=== PATIENT | male | born 1980 | race Caucasian/White ===

== ENCOUNTER 2021-08-03 18:21 | Inpatient (IN) | payer OTHER ==
[~2021-08-03] VITALS: Ht 177.8 cm; Wt 124.9 kg
[2021-08-03] MEDS ORDERED: ACETAMINOPHEN 500 MG TAB PO ONE (18:45)
[2021-08-03 19:11] LABS: Basophils # (auto) 0.1 10 ^3/uL (0-0.2); Basophils % (auto) 1.1 % (0.0-2.0); Eosinophils # (auto) 0.1 10 ^3/uL (0-0.8); Eosinophils % (auto) 1.1 % (0.0-7.0); Hematocrit 49.8 % (41.0-53.0); Hemoglobin 17.2 g/dL (13.5-17.5); Lymphocytes # (auto) 1.4 10 ^3/uL (0.4-5.4); Lymphocytes % (auto) 16.3 % (10.0-50.0); Mean Corpuscular Hemoglobin 32.1 pg (28.0-32.0); Mean Corpuscular Hgb Conc. 34.6 g/dL (32.0-36.0); Mean Corpuscular Volume 92.7 fL (80.0-100.0); Monocytes # (auto) 1.3 10 ^3/uL (0-1.3); Monocytes % (auto) 15.3 % (0.0-12.0); Neutrophils # (auto) 5.5 10 ^3/uL (1.6-8.6); Neutrophils % (auto) 66.2 % (37.0-80.0); Nucleated Red Blood Cells % 0.1 %; Red Blood Cells 5.37 10^6/uL (4.5-5.90); Red Cell Distribution Width 13.4 % (11.8-14.3); White Blood Cell 8.3 10^3/uL (4.4-10.8)
[2021-08-03] MEDS ORDERED: ALBUTEROL SULF HFA 90MCG INH 200DOSE IN ONE (19:15)
[2021-08-03] MEDS ORDERED: DexAMETHasone SOD PHOS 10MG/1ML VIAL INJ IV ONE (19:15)
[2021-08-03 19:28] LABS: Chloride 105 mmol/L (98-107); Potassium 3.7 mmol/L (3.5-5.1); Sodium 138 mmol/L (136-145)
[2021-08-03 19:32] LABS: Albumin 3.7 g/dL (3.4-5.0); Anion Gap 8 (5-15); BUN/Creatinine Ratio 10.5; Blood Urea Nitrogen 10 mg/dL (7-18); Calcium 8.8 mg/dL (8.5-10.1); Carbon Dioxide 25 mmol/L (21-32); GFR African American 112 mL/min; GFR Non-African American 93 mL/min; Glucose 105 mg/dL (74-106)
[2021-08-03 19:48] LABS: Alanine Aminotransferase 51 U/L (16-61); Alkaline Phosphatase 63 U/L (45-117); Aspartate Aminotransferase 22 U/L (15-37); Bilirubin, Total 0.6 mg/dL (0.2-1.0); Total Protein 7.5 g/dL (6.4-8.2)
[2021-08-04] MEDS ORDERED: ACETAMINOPHEN 500 MG TAB PO PRN (03:45)
[2021-08-04] MEDS ORDERED: MORPHINE SULFATE INJECTION 2 MG/ML SYRG IV PRN (03:45)
[2021-08-04] MEDS ORDERED: NITROGLYCERIN 0.4 MG SL TAB SL PRN (03:45)
[2021-08-04] MEDS ORDERED: TEMAZEPAM 15 MG CAP PO PRN (03:45)
[2021-08-04] MEDS ORDERED: ONDANSETRON HCL 4 MG/2 ML VIAL IV PRN (03:45)
[2021-08-04 09:10] VITALS: BP 120/72
[2021-08-04] MEDS: DexAMETHasone SOD PHOS 10MG/1ML VIAL INJ IV SCH (09:39)
[2021-08-04] MEDS: ZINC SULFATE 220mg CAP or TAB PO SCH (09:39)
[2021-08-04] MEDS: AZITHROMYCIN 500MG/ 250ML 250 ML IV SCH (09:39)
[2021-08-04] MEDS: ASCORBIC ACID 1,000 MG TAB PO SCH (09:39)
[2021-08-04] MEDS: CHOLECALCIFEROL (VITD3) 2,000 UNIT CAP/TAB PO SCH (09:40)
[2021-08-04] MEDS: ENOXAPARIN SOD 40 MG/0.4 ML SYRINGE SC SCH ×2 (09:40→22:18)
[2021-08-04] MEDS ORDERED: REMDESIVIR PER PHARMACY 0 ML IV SCH (11:45)
[2021-08-04] MEDS ORDERED: REMDESIVIR 200 MG in NS 210ml LOADING DOSE ADULT IV ONE (15:00)
[2021-08-04] MEDS ORDERED: guaiFENesin-DM 100/10mg/5ml SYR PO PRN (15:30)
[2021-08-04] MEDS ORDERED: PNEUMOCOCCAL VACC POLYS 25 MCG/0.5 ML VIAL IM ONE (21:30)
[2021-08-04 22:00] VITALS: BP 133/67
[2021-08-04] MEDS: FAMOTIDINE 20 MG TAB PO SCH (22:18)
[2021-08-04] MEDS: ALBUTEROL SULF HFA 90MCG INH 200DOSE IN PRN (23:11)
[2021-08-05 05:00] VITALS: BP 140/75
[2021-08-05 06:06] LABS: Basophils # (auto) 0 10 ^3/uL (0-0.2); Basophils % (auto) 0.1 % (0.0-2.0); Eosinophils # (auto) 0 10 ^3/uL (0-0.8); Hematocrit 49.8 % (41.0-53.0); Hemoglobin 16.4 g/dL (13.5-17.5); Lymphocytes # (auto) 1.7 10 ^3/uL (0.4-5.4); Lymphocytes % (auto) 8.8 % (10.0-50.0); Mean Corpuscular Hemoglobin 31.4 pg (28.0-32.0); Mean Corpuscular Hgb Conc. 32.9 g/dL (32.0-36.0); Mean Corpuscular Volume 95.2 fL (80.0-100.0); Monocytes # (auto) 2.1 10 ^3/uL (0-1.3); Monocytes % (auto) 11.1 % (0.0-12.0); Neutrophils # (auto) 15.1 10 ^3/uL (1.6-8.6); Nucleated Red Blood Cells % 0.1 %; Red Blood Cells 5.23 10^6/uL (4.5-5.90); Red Cell Distribution Width 13.6 % (11.8-14.3); White Blood Cell 18.9 10^3/uL (4.4-10.8)
[2021-08-05 06:30] LABS: Potassium 4.2 mmol/L (3.5-5.1)
[2021-08-05 06:41] LABS: Albumin 3.4 g/dL (3.4-5.0); BUN/Creatinine Ratio 19.8; Bilirubin, Total 0.3 mg/dL (0.2-1.0); Calcium 8.4 mg/dL (8.5-10.1); Total Protein 6.8 g/dL (6.4-8.2)
[2021-08-05] MEDS: ALBUTEROL SULF HFA 90MCG INH 200DOSE IN PRN (07:33)
[2021-08-05 09:00] VITALS: BP 109/71
[2021-08-05] MEDS: ZINC SULFATE 220mg CAP or TAB PO SCH (09:27)
[2021-08-05] MEDS: DexAMETHasone SOD PHOS 10MG/1ML VIAL INJ IV SCH (09:27)
[2021-08-05] MEDS: CHOLECALCIFEROL (VITD3) 2,000 UNIT CAP/TAB PO SCH (09:27)
[2021-08-05] MEDS: ASCORBIC ACID 1,000 MG TAB PO SCH (09:27)
[2021-08-05] MEDS: FAMOTIDINE 20 MG TAB PO SCH ×2 (09:27→22:16)
[2021-08-05] MEDS: AZITHROMYCIN 500MG/ 250ML 250 ML IV SCH (09:27)
[2021-08-05] MEDS: ENOXAPARIN SOD 40 MG/0.4 ML SYRINGE SC SCH ×2 (09:28→22:17)
[2021-08-05] MEDS ORDERED: POM PO (09:51)
[2021-08-05] MEDS ORDERED: IVERMECTIN 3 MG TAB PO SCH (10:00)
[2021-08-05 13:00] VITALS: BP 110/73
[2021-08-05] MEDS: REMDESIVIR 100mg 100 MG in SODIUM CHL 0.9% 230 ML IV SCH (14:51)
[2021-08-05 22:23] VITALS: BP 159/88
[2021-08-06 05:02] VITALS: BP 135/80
[2021-08-06] MEDS: ALBUTEROL SULF HFA 90MCG INH 200DOSE IN PRN (06:53)
[2021-08-06] MEDS: ZINC SULFATE 220mg CAP or TAB PO SCH (08:40)
[2021-08-06] MEDS: FAMOTIDINE 20 MG TAB PO SCH (08:40)
[2021-08-06] MEDS: CHOLECALCIFEROL (VITD3) 2,000 UNIT CAP/TAB PO SCH (08:40)
[2021-08-06] MEDS: ASCORBIC ACID 1,000 MG TAB PO SCH (08:40)
[2021-08-06] MEDS: ENOXAPARIN SOD 40 MG/0.4 ML SYRINGE SC SCH (08:41)
[2021-08-06 09:00] VITALS: BP 123/78
[2021-08-06] MEDS ORDERED: AZITHROMYCIN 250 MG TAB PO SCH (10:00)
[2021-08-06] MEDS ORDERED: DexAMETHasone 4 MG TAB PO SCH (10:00)
[2021-08-06] MEDS: REMDESIVIR 100mg 100 MG in SODIUM CHL 0.9% 230 ML IV SCH (10:39)
[2021-08-06] MEDS ORDERED: CHOL1CAP47 PO (12:43)
[2021-08-06] MEDS ORDERED: ZINC220T6 PO (12:43)
[2021-08-06] MEDS ORDERED: DEXT1SYP9 PO (12:43)
[2021-08-06] MEDS ORDERED: ASCO10003 PO (12:43)
[2021-08-06] MEDS ORDERED: ASPI-231 PO (12:45)
[2021-08-06] MEDS ORDERED: AZIT250T8 PO (12:45)
[2021-08-06] MEDS ORDERED: ALBUAER3 IN (12:45)
[2021-08-06 13:14] VITALS: BP 141/79
== END 2021-08-06 14:55 | disposition home or self-care (01) | DRG 177 ==
LOC: ER 18:21 → TELE 08-04 03:31 → TELE-EAST 08-04 19:30
PROVIDERS: ADMIT Nurse Practitioner; ATTEND Internal Medicine
PROC: XW033E5 Introduction of Remdesivir Anti-infective into Peripheral Vein, Percutaneous Approach, New Technology Group 5 (ICD-10-PCS; principal; 2021-08-04)
DX: U07.1 COVID-19 (principal); J96.01 Acute respiratory failure with hypoxia; J12.82 Pneumonia due to coronavirus disease 2019; E66.01 Morbid (severe) obesity due to excess calories; F17.200 Nicotine dependence, unspecified, uncomplicated; Z88.0 Allergy status to penicillin; Z68.39 Body mass index [BMI] 39.0-39.9, adult
CPT/HCPCS: 36415; 71045; 80053; 82728; 83605; 83735; 84484; 85025; 87426; 94640; 96365; 96366; 96367; 96372; 96375; 96376; G0378; J1100

== ENCOUNTER 2024-05-24 20:32 | Emergency (ER) | payer OTHER ==
[~2024-05-24 20:32] MED LIST: ALBUAER3 IN; ASCO10003 PO; ASPI1TAB20 PO; AZIT-185 PO; CHOL1CAP47 PO; DEXT1SYP9 PO; POM PO; ZINC220T6 PO
== END 2024-05-24 21:28 | disposition left against medical advice (07) ==
LOC: ER 20:32
DX: R42 Dizziness and giddiness (principal); R51.9 Headache, unspecified; Z88.0 Allergy status to penicillin; Z53.21 Procedure and treatment not carried out due to patient leaving prior to being seen by health care provider